=== PATIENT | female | born 1970 | race Caucasian/White ===

== ENCOUNTER 2019-01-18 12:43 | Emergency (ER) | payer OTHER ==
[~2019-01-18] VITALS: Ht 157.5 cm; Wt 56.2 kg
[2019-01-18] MEDS ORDERED: URINARY PAIN RE95 MG PO (13:09)
== END 2019-01-18 15:49 | disposition home or self-care (01) ==
LOC: ER 12:43
DX: N30.81 Other cystitis with hematuria (principal); B96.29 Other Escherichia coli [E. coli] as the cause of diseases classified elsewhere